=== PATIENT | female | born 2000 | race African-American/Black ===

== ENCOUNTER 2024-05-20 10:00 | Emergency (ER) | payer MEDICAID ==
[~2024-05-20] VITALS: Ht 167.6 cm; Wt 59.0 kg
[2024-05-20 10:07] VITALS: BP 117/72; TEMP 98.1
--- NOTE | 2024-05-20 10:18 | NUR ---
c/o wound to her left thumb from cutting with knife
[2024-05-20 10:52] VITALS: O2SAT 100
--- NOTE | 2024-05-20 10:52 | NUR ---
Patient discharged to home in stable condition. Written and verbal after care instructions given. Patient verbalizes understanding of instruction.
[2024-05-20] MEDS ORDERED: TDAP [DIPH/PERTUSSIS/TET] 0.5 ML VIAL IM ONE (11:00)
== END 2024-05-20 10:52 | disposition home or self-care (01) ==
LOC: ER 10:06
DX: S61.012A Laceration without foreign body of left thumb without damage to nail, initial encounter (principal); W26.0XXA Contact with knife, initial encounter; Y93.G3 Activity, cooking and baking; Y92.090 Kitchen in other non-institutional residence as the place of occurrence of the external cause; Y99.8 Other external cause status